=== PATIENT | female | born 1970 | race African-American/Black ===

== ENCOUNTER 2020-10-14 23:24 | Inpatient (IN) ==
[2020-10-15 00:23] LABS: Eosinophils % 0.3 % (0.00-10.9); Hematocrit 38.7 VOL% (35.7-47.0); Hemoglobin 12.1 GM/DL (12.0-16.0); Immature Granulocytes % 0.5 %; Immature Granulocytes Absolute 0.02 #; Lymphocytes % 25.4 % (21.3-54.2); Mean Corpuscular HGB Conc 31.3 GM/DL (32-36); Mean Corpuscular Volume 81.1 FL (87-102); Mean Platelet Volume 12.1 FL (9.6-12.0); Monocytes % 6.2 % (1.7-12.7); Neutrophils % 67.6 % (38.7-73.9); Platelet Count 169 T/CUMM (130-400); Red Blood Count 4.77 MC/CUMM (3.8-5.5); Red Cell Distribution Width 16.4 % (9.3-17.3); White Blood Count 3.9 T/CUMM (4-12)
[2020-10-15 00:37] LABS: Alanine Aminotransferase 22 U/L (13-56); Alkaline Phosphatase 62 U/L (45-117); Aspartate Amino Transferase 34 U/L (0-37); Bilirubin,Total < 0.39 MG/DL (0.2-1.0); Blood Urea Nitrogen 5 MG/DL (7-18); Calcium 8.5 MG/DL (8.5-10.1); Estimated Glom Filtration Rate 139 ML/MIN; Ferritin 107.8 ng/ml (8-252); Glucose 114 MG/DL (74-106); Total Protein 7.1 G/DL (6.4-8.3)
[2020-10-15] MEDS ORDERED: AZITHROMYCIN 250 MG TABLET PO STA (01:58)
[2020-10-15] MEDS ORDERED: ONDANSETRON 4 MG/2 ML VIAL IV PRN (02:01)
[2020-10-15] MEDS ORDERED: DEXTROSE 50% 25 GM/50 ML SYRINGE IV PRN (02:01)
[2020-10-15] MEDS ORDERED: DEXTROSE 50% 25 GM/50 ML VIAL IV PRN (02:01)
[2020-10-15] MEDS ORDERED: GLUCAGON 1 MG VIAL IM PRN ×2 (02:01)
[2020-10-15] MEDS ORDERED: CETIRIZINE 10 MG TABLET PO STA (02:07)
[2020-10-15] MEDS: cefTRIAXone 1,000 MG in SYRINGE 1 EACH IV SCH (03:01)
[2020-10-15] MEDS: DEXAMETHASONE 10 MG/1 ML VIAL IV SCH ×2 (03:01→09:46)
[2020-10-15] MEDS: ENOXAPARIN 40 MG/0.4 ML SYRINGE SUBCUT SCH (06:42)
[2020-10-15 07:02] LABS: Bacteria,Urine Few /HPF (Few); Bilirubin,Urine Negative (Negative); Blood, Urine Negative (Negative); Glucose,Urine (UA) Negative (Negative); Ketones,Urine Negative (Negative); Mucus,Urine Occasional /LPF (Occasional); Nitrite,Urine Negative (Negative); Protein,Urine 30 MG/DL; RBC,Urine 1 /HPF (0-4); Squamous Epithelial Cell,Urine Occasional /HPF (0-10); Urine Appearance CLEAR (Clear); Urine Color Yellow (Yellow); Urine Specific Gravity 1.012 (1.001-1.035); Urine Urobilinogen < 2.0 EU/DL (0.2-1.0); WBC,Urine <1 /HPF (0-6)
[2020-10-15] MEDS: INSULIN REGULAR 100 UNIT/ML SUBCUT SCH ×4 (08:17→21:40)
[2020-10-15] MEDS ORDERED: AZITHROMYCIN 250 MG TABLET ONE (08:46)
[2020-10-15] MEDS ORDERED: CETIRIZINE 10 MG TABLET ONE (08:51)
[2020-10-15 08:54] LABS: Hematocrit 40.3 VOL% (35.7-47.0); Hemoglobin 12.4 GM/DL (12.0-16.0); Immature Granulocytes % 0.4 %; Immature Granulocytes Absolute 0.01 #; Lymphocytes # 0.5 10*3/uL (1.4-4.0); Mean Corpuscular HGB Conc 30.8 GM/DL (32-36); Mean Corpuscular Volume 81.6 FL (87-102); Mean Platelet Volume 12.9 FL (9.6-12.0); Monocytes % 1.8 % (1.7-12.7); Neutrophils % 78.8 % (38.7-73.9); Platelet Count 184 T/CUMM (130-400); Red Blood Count 4.94 MC/CUMM (3.8-5.5); Red Cell Distribution Width 16.4 % (9.3-17.3); White Blood Count 2.8 T/CUMM (4-12)
[2020-10-15] MEDS: ASCORBIC ACID 500 MG TABLET PO SCH (09:01)
[2020-10-15] MEDS: CHOLECALCIFEROL 1,000 UNIT TABLET PO SCH (09:01)
[2020-10-15] MEDS: FAMOTIDINE 20 MG TABLET PO SCH ×2 (09:01→21:40)
[2020-10-15] MEDS: ZINC SULFATE 220 MG CAPSULE PO SCH (09:01)
[2020-10-15 09:20] LABS: Troponin I < 0.015 NG/ML (0.00-0.045)
[2020-10-15 09:22] LABS: Alanine Aminotransferase 23 U/L (13-56); Alkaline Phosphatase 65 U/L (45-117); Aspartate Amino Transferase 28 U/L (0-37); Bilirubin,Total < 0.39 MG/DL (0.2-1.0); Blood Urea Nitrogen 6 MG/DL (7-18); Calcium 8.6 MG/DL (8.5-10.1); Estimated Glom Filtration Rate 161 ML/MIN; Ferritin 120.7 ng/ml (8-252); Glucose 177 MG/DL (74-106); Osmolality,Calculated 276.7 MOS/KG (273-304); Total Protein 7.1 G/DL (6.4-8.3)
[2020-10-15 15:32] LABS: Hematocrit 38.6 VOL% (35.7-47.0); Hemoglobin 11.7 GM/DL (12.0-16.0); Immature Granulocytes % 0.6 %; Immature Granulocytes Absolute 0.01 #; Lymphocytes # 0.5 10*3/uL (1.4-4.0); Lymphocytes % 31.9 % (21.3-54.2); Mean Corpuscular HGB Conc 30.3 GM/DL (32-36); Mean Corpuscular Volume 82.7 FL (87-102); Mean Platelet Volume 11.7 FL (9.6-12.0); Monocytes % 2.5 % (1.7-12.7); Platelet Count 177 T/CUMM (130-400); Red Blood Count 4.67 MC/CUMM (3.8-5.5); Red Cell Distribution Width 16.6 % (9.3-17.3); White Blood Count 1.6 T/CUMM (4-12)
[2020-10-15 16:07] LABS: Calcium 8.8 MG/DL (8.5-10.1)
[2020-10-15] MEDS: GABAPENTIN 300 MG CAPSULE PO SCH ×2 (16:10→21:40)
[2020-10-15] MEDS: ACETAMINOPHEN 325 MG TABLET PO PRN (16:11)
[2020-10-15 16:32] LABS: Lymphocytes 20 % (20-55); Segmented Neutrophils 76 % (50-85); Total Cells Counted 100
[2020-10-15 16:33] LABS: Hypochromasia 2+; Microcytosis 1+; Platelet Estimate Normal
[2020-10-16] MEDS: cefTRIAXone 1,000 MG in SYRINGE 1 EACH IV SCH (01:58)
[2020-10-16] MEDS ORDERED: cefTRIAXone 1,000 MG in SODIUM CHLORIDE 0.9% 100 ML IV SCH (02:30)
[2020-10-16] MEDS: ALBUTEROL INHALER 18 GM INH SCH ×3 (06:05→20:15)
[2020-10-16] MEDS: ENOXAPARIN 40 MG/0.4 ML SYRINGE SUBCUT SCH (06:05)
[2020-10-16 07:49] LABS: Ferritin 109.8 ng/ml (8-252)
[2020-10-16] MEDS ORDERED: REMDESIVIR 200 MG in SODIUM CHLORIDE 0.9% 210 ML IV ONE (08:00)
[2020-10-16] MEDS: INSULIN REGULAR 100 UNIT/ML SUBCUT SCH ×4 (09:54→21:23)
[2020-10-16] MEDS: DEXAMETHASONE 10 MG/1 ML VIAL IV SCH (09:55)
[2020-10-16] MEDS: GABAPENTIN 300 MG CAPSULE PO SCH ×3 (09:59→20:15)
[2020-10-16] MEDS: CETIRIZINE 10 MG TABLET PO SCH (09:59)
[2020-10-16] MEDS: AZITHROMYCIN 250 MG TABLET PO SCH (09:59)
[2020-10-16] MEDS: ASCORBIC ACID 500 MG TABLET PO SCH (09:59)
[2020-10-16] MEDS: ACETAMINOPHEN 325 MG TABLET PO PRN (09:59)
[2020-10-16] MEDS: CHOLECALCIFEROL 1,000 UNIT TABLET PO SCH (09:59)
[2020-10-16] MEDS ORDERED: ZINC OXIDE PASTE 113 GM TUBE TOP PRN (10:30)
[2020-10-16] MEDS ORDERED: SODIUM CHLORIDE 0.9% 1,000 ML IV PRN (10:34)
[2020-10-16] MEDS: FAMOTIDINE 20 MG TABLET PO SCH ×2 (12:36→20:15)
[2020-10-16] MEDS: ZINC SULFATE 220 MG CAPSULE PO SCH (12:52)
[2020-10-17] MEDS: ALBUTEROL INHALER 18 GM INH SCH ×4 (00:10→20:10)
[2020-10-17] MEDS: ACETAMINOPHEN 325 MG TABLET PO PRN ×2 (00:15→08:31)
[2020-10-17] MEDS: cefTRIAXone 1,000 MG in SYRINGE 1 EACH IV SCH (01:15)
[2020-10-17] MEDS: ENOXAPARIN 40 MG/0.4 ML SYRINGE SUBCUT SCH (06:15)
[2020-10-17 06:51] LABS: Basophils % 0.1 % (0.0-0.8); Hematocrit 37.5 VOL% (35.7-47.0); Hemoglobin 11.5 GM/DL (12.0-16.0); Immature Granulocytes % 0.6 %; Immature Granulocytes Absolute 0.05 #; Lymphocytes % 11.7 % (21.3-54.2); Mean Corpuscular HGB Conc 30.7 GM/DL (32-36); Mean Corpuscular Volume 82.1 FL (87-102); Mean Platelet Volume 12.9 FL (9.6-12.0); Monocytes % 5.4 % (1.7-12.7); Neutrophils % 82.2 % (38.7-73.9); Platelet Count 242 T/CUMM (130-400); Red Blood Count 4.57 MC/CUMM (3.8-5.5); Red Cell Distribution Width 16.6 % (9.3-17.3); White Blood Count 8.9 T/CUMM (4-12)
[2020-10-17 08:22] LABS: Calcium 8.6 MG/DL (8.5-10.1); Ferritin 90.6 ng/ml (8-252); Osmolality,Calculated 280.3 MOS/KG (273-304)
[2020-10-17] MEDS: ZINC SULFATE 220 MG CAPSULE PO SCH (08:30)
[2020-10-17] MEDS: ASCORBIC ACID 500 MG TABLET PO SCH (08:30)
[2020-10-17] MEDS: DEXAMETHASONE 10 MG/1 ML VIAL IV SCH (08:30)
[2020-10-17] MEDS: CHOLECALCIFEROL 1,000 UNIT TABLET PO SCH (08:30)
[2020-10-17] MEDS: AZITHROMYCIN 250 MG TABLET PO SCH (08:31)
[2020-10-17] MEDS: GABAPENTIN 300 MG CAPSULE PO SCH ×3 (08:31→20:10)
[2020-10-17] MEDS: FAMOTIDINE 20 MG TABLET PO SCH ×2 (08:31→20:10)
[2020-10-17] MEDS: CETIRIZINE 10 MG TABLET PO SCH (08:31)
[2020-10-17] MEDS: INSULIN REGULAR 100 UNIT/ML SUBCUT SCH ×4 (09:32→20:10)
[2020-10-17] MEDS: REMDESIVIR 100 MG in SODIUM CHLORIDE 0.9% 230 ML IV SCH (11:06)
[2020-10-18] MEDS: cefTRIAXone 1,000 MG in SYRINGE 1 EACH IV SCH (01:10)
[2020-10-18] MEDS: ALBUTEROL INHALER 18 GM INH SCH ×4 (01:10→16:50)
[2020-10-18] MEDS: ENOXAPARIN 40 MG/0.4 ML SYRINGE SUBCUT SCH (06:20)
[2020-10-18] MEDS: AZITHROMYCIN 250 MG TABLET PO SCH (09:41)
[2020-10-18] MEDS: DEXAMETHASONE 10 MG/1 ML VIAL IV SCH (09:41)
[2020-10-18] MEDS: CETIRIZINE 10 MG TABLET PO SCH (09:41)
[2020-10-18] MEDS: CHOLECALCIFEROL 1,000 UNIT TABLET PO SCH (09:41)
[2020-10-18] MEDS: ASCORBIC ACID 500 MG TABLET PO SCH (09:41)
[2020-10-18] MEDS: GABAPENTIN 300 MG CAPSULE PO SCH ×3 (09:41→20:40)
[2020-10-18] MEDS: FAMOTIDINE 20 MG TABLET PO SCH ×2 (09:41→20:40)
[2020-10-18] MEDS: INSULIN REGULAR 100 UNIT/ML SUBCUT SCH ×4 (11:31→20:40)
[2020-10-18] MEDS: REMDESIVIR 100 MG in SODIUM CHLORIDE 0.9% 230 ML IV SCH (12:07)
[2020-10-18] MEDS: ZINC SULFATE 220 MG CAPSULE PO SCH (13:00)
[2020-10-19] MEDS: ALBUTEROL INHALER 18 GM INH SCH ×4 (00:40→18:11)
[2020-10-19] MEDS: cefTRIAXone 1,000 MG in SYRINGE 1 EACH IV SCH (02:20)
[2020-10-19] MEDS: ENOXAPARIN 40 MG/0.4 ML SYRINGE SUBCUT SCH (05:15)
[2020-10-19 06:07] LABS: Basophils % 0.1 % (0.0-0.8); Hematocrit 37.3 VOL% (35.7-47.0); Hemoglobin 11.5 GM/DL (12.0-16.0); Immature Granulocytes Absolute 0.09 #; Lymphocytes # 1.6 10*3/uL (1.4-4.0); Lymphocytes % 17.9 % (21.3-54.2); Mean Corpuscular HGB Conc 30.8 GM/DL (32-36); Mean Corpuscular Volume 81.8 FL (87-102); Mean Platelet Volume 12.1 FL (9.6-12.0); Monocytes % 9.7 % (1.7-12.7); Neutrophils % 71.3 % (38.7-73.9); Platelet Count 268 T/CUMM (130-400); Red Blood Count 4.56 MC/CUMM (3.8-5.5); Red Cell Distribution Width 16.5 % (9.3-17.3)
[2020-10-19 06:31] LABS: Calcium 8.9 MG/DL (8.5-10.1); Osmolality,Calculated 276.5 MOS/KG (273-304)
[2020-10-19 06:47] LABS: Lymphocytes 19 % (20-55); Platelet Estimate Adequate; Segmented Neutrophils 74 % (50-85); Total Cells Counted 100
[2020-10-19 06:48] LABS: Hypochromasia 1+; Microcytosis 1+
[2020-10-19] MEDS: DEXAMETHASONE 10 MG/1 ML VIAL IV SCH (09:14)
[2020-10-19] MEDS: REMDESIVIR 100 MG in SODIUM CHLORIDE 0.9% 230 ML IV SCH (09:15)
[2020-10-19] MEDS: AZITHROMYCIN 250 MG TABLET PO SCH (09:15)
[2020-10-19] MEDS: CHOLECALCIFEROL 1,000 UNIT TABLET PO SCH (09:15)
[2020-10-19] MEDS: FAMOTIDINE 20 MG TABLET PO SCH ×2 (09:16→20:20)
[2020-10-19] MEDS: ACETAMINOPHEN 325 MG TABLET PO PRN (09:16)
[2020-10-19] MEDS: GABAPENTIN 300 MG CAPSULE PO SCH ×3 (09:16→20:20)
[2020-10-19] MEDS: CETIRIZINE 10 MG TABLET PO SCH (09:16)
[2020-10-19] MEDS: ASCORBIC ACID 500 MG TABLET PO SCH (09:16)
[2020-10-19] MEDS: INSULIN REGULAR 100 UNIT/ML SUBCUT SCH ×4 (09:16→21:04)
[2020-10-19] MEDS: ZINC SULFATE 220 MG CAPSULE PO SCH (09:16)
[2020-10-19] MEDS ORDERED: PHENOL 1.4% THROAT SPRAY 177 ML BOTTLE PO PRN (11:43)
[2020-10-20] MEDS: ALBUTEROL INHALER 18 GM INH SCH ×4 (01:20→17:59)
[2020-10-20] MEDS: cefTRIAXone 1,000 MG in SYRINGE 1 EACH IV SCH (01:30)
[2020-10-20] MEDS: ENOXAPARIN 40 MG/0.4 ML SYRINGE SUBCUT SCH (05:30)
[2020-10-20 06:30] LABS: Basophils % 0.2 % (0.0-0.8); Eosinophils % 0.2 % (0.00-10.9); Hematocrit 38.2 VOL% (35.7-47.0); Hemoglobin 11.9 GM/DL (12.0-16.0); Immature Granulocytes % 1.2 %; Immature Granulocytes Absolute 0.15 #; Lymphocytes # 1.8 10*3/uL (1.4-4.0); Lymphocytes % 14.7 % (21.3-54.2); Mean Corpuscular HGB Conc 31.2 GM/DL (32-36); Mean Platelet Volume 12.2 FL (9.6-12.0); Neutrophils % 76.7 % (38.7-73.9); Platelet Count 307 T/CUMM (130-400); Red Blood Count 4.66 MC/CUMM (3.8-5.5); Red Cell Distribution Width 16.4 % (9.3-17.3); White Blood Count 12.2 T/CUMM (4-12)
[2020-10-20 06:54] LABS: Anisocytosis 2+; Atypical Lymphocytes Few; Band Neutrophils 1 % (0-10); Lymphocytes 16 % (20-55); Platelet Estimate Normal; Segmented Neutrophils 80 % (50-85); Total Cells Counted 100
[2020-10-20 06:57] LABS: Calcium 8.8 MG/DL (8.5-10.1); Osmolality,Calculated 276.5 MOS/KG (273-304)
[2020-10-20] MEDS: ASCORBIC ACID 500 MG TABLET PO SCH (08:41)
[2020-10-20] MEDS: ZINC SULFATE 220 MG CAPSULE PO SCH (08:41)
[2020-10-20] MEDS: CHOLECALCIFEROL 1,000 UNIT TABLET PO SCH (08:41)
[2020-10-20] MEDS: GABAPENTIN 300 MG CAPSULE PO SCH ×3 (08:41→20:15)
[2020-10-20] MEDS: FAMOTIDINE 20 MG TABLET PO SCH ×2 (08:41→20:15)
[2020-10-20] MEDS: DEXAMETHASONE 10 MG/1 ML VIAL IV SCH (08:41)
[2020-10-20] MEDS: REMDESIVIR 100 MG in SODIUM CHLORIDE 0.9% 230 ML IV SCH (08:42)
[2020-10-20] MEDS: CETIRIZINE 10 MG TABLET PO SCH (08:42)
[2020-10-20] MEDS: AZITHROMYCIN 250 MG TABLET PO SCH (08:47)
[2020-10-20] MEDS: INSULIN REGULAR 100 UNIT/ML SUBCUT SCH ×4 (10:30→20:15)
[2020-10-21] MEDS: cefTRIAXone 1,000 MG in SYRINGE 1 EACH IV SCH (02:30)
[2020-10-21] MEDS: ENOXAPARIN 40 MG/0.4 ML SYRINGE SUBCUT SCH (05:05)
[2020-10-21] MEDS: ALBUTEROL INHALER 18 GM INH SCH ×3 (06:05→14:00)
[2020-10-21 06:39] LABS: Basophils % 0.2 % (0.0-0.8); Eosinophils # 0.1 10*3/uL (0.0-0.87); Eosinophils % 0.4 % (0.00-10.9); Hematocrit 38.4 VOL% (35.7-47.0); Hemoglobin 11.8 GM/DL (12.0-16.0); Immature Granulocytes % 1.9 %; Immature Granulocytes Absolute 0.27 #; Lymphocytes # 1.9 10*3/uL (1.4-4.0); Lymphocytes % 12.8 % (21.3-54.2); Mean Corpuscular HGB Conc 30.7 GM/DL (32-36); Mean Corpuscular Volume 80.7 FL (87-102); Mean Platelet Volume 12.2 FL (9.6-12.0); Monocytes % 6.8 % (1.7-12.7); Neutrophils % 77.9 % (38.7-73.9); Platelet Count 294 T/CUMM (130-400); Red Blood Count 4.76 MC/CUMM (3.8-5.5); Red Cell Distribution Width 16.3 % (9.3-17.3); White Blood Count 14.5 T/CUMM (4-12)
[2020-10-21 06:50] LABS: Osmolality,Calculated 277.5 MOS/KG (273-304)
[2020-10-21] MEDS: ZINC SULFATE 220 MG CAPSULE PO SCH (08:41)
[2020-10-21] MEDS: ASCORBIC ACID 500 MG TABLET PO SCH (08:41)
[2020-10-21] MEDS: CETIRIZINE 10 MG TABLET PO SCH (08:41)
[2020-10-21] MEDS: GABAPENTIN 300 MG CAPSULE PO SCH ×2 (08:41→14:00)
[2020-10-21] MEDS: CHOLECALCIFEROL 1,000 UNIT TABLET PO SCH (08:41)
[2020-10-21] MEDS: FAMOTIDINE 20 MG TABLET PO SCH (08:41)
[2020-10-21] MEDS: DEXAMETHASONE 10 MG/1 ML VIAL IV SCH (08:41)
[2020-10-21] MEDS: ACETAMINOPHEN 325 MG TABLET PO PRN (08:41)
[2020-10-21] MEDS: INSULIN REGULAR 100 UNIT/ML SUBCUT SCH ×2 (08:42→11:41)
[2020-10-21] MEDS: AZITHROMYCIN 250 MG TABLET PO SCH (08:42)
[2020-10-21 11:17] VITALS: BP 123/70
[2020-10-21] MEDS ORDERED: APIXABAN 5 MG TABLET PO SCH (21:00)
== END 2020-10-21 15:45 | disposition home health service (06) | DRG 177 ==
LOC: N.ED 23:24 → SUATTDRO 10-15 02:01 → N.EDINP 10-15 02:01 → N.2E 10-15 14:39
PROVIDERS: ADMIT Internal Medicine; ATTEND Family Medicine